=== PATIENT | male | born 1980 ===

== ENCOUNTER 2025-05-19 04:39 | Emergency (ER) | payer BC, SELFPAY ==
[2025-05-19 04:50] VITALS: BP 127/78; PULSE 67; RESP 16; TEMP 36.7; O2SAT 96; BMI 38.7
--- OUTSIDE RECORDS SUMMARY | 2025-05-19 05:33 | XMS_ITS | Clinical Summary ---
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 10/03/2018 DX:Chronic bilateral low robin k pain with right-sided sciatica Lumbar radiculitis 10/03/2018 DX:Lumbar rad iculitis Osteoarthritis of spine with radiculopathy, lumbar region 10/03/2018 DX:Osteoarthritis of spin e with radiculopathy, lumbar region Social History Tobacco Use Types Packs/Day Years Used Date Smoking Tobacco: Never Smokeless Tobacco: Never Alcohol Use Standard Drinks/Week Comments Yes 3 (1 standard drink = 0.6 oz pur e alcohol) Sex and Gender Information Value Date Recorded Sex Assigned at Not on file Legal Sex Male 2:16 AM EST Gender Identity Not on file Sexual Orientation Not on file Obstetrics History Last Filed Vital Signs Vital Sign Reading Time Taken Comments Blood Pressure 118/84 12/19/2021 3:46 PM EDT Pulse 88 12/19/2021 3:46 PM EDT Temperature - - Respiratory Rate - - Oxygen Saturation - - Inhaled Oxygen Concentration - - Weight 105 kg (232 lb) 12/19/2021 3:46 PM EDT Height 177.8 cm (5' 10 ) 12/19/2021 3:46 PM EDT Body Mass Index 33.29 12/19/2021 3:46 PM EDT Plan of Treatment Health Maintenance Due Date Last Done Comments DTaP,Tdap,and Td Vaccines (1 - Tdap) 1999 Hepatitis B Vaccines (1 of 3 - 19+ 3-dose series) 1999 Cholesterol Screening (Lipid Panel) 08/06/2022 HIV Screening 08/06/2022 Hepatitis C Screening 08/06/2022 Social Influencers of Health Screening 08/06/2022 Depression Screening 09/03/2024 COVID-19 Vaccine (1 - 2023-2 5 season) 2025 Influenza Vaccine (#1) 2025 06/17/2020 HIB Vaccines Aged Out No longer eligi ble based on patient's age to complete this topic HPV Vaccines Aged Out No longer eligi ble based on patient's age to complete this topic Hepatitis A Vaccines Aged Out No long er eligible based on patient's age to complete this topic IPV Vaccines Aged Out No longer eligi ble based on patient's age to complete this topic MMR Vaccines Aged Out No longer eligi ble based on patient's age to complete this topic Meningococcal ACWY Vaccine Aged Out N o longer eligible based on patient's age to complete this topic Meningococcal B Vaccine Aged Out No l onger eligible based on patient's age to complete this topic Pneumococcal Vaccine: Pediat rics (0 to 5 Years) and At-Risk Patients (6 to 49 Years) Aged Out No longer eligi ble based on patient's age to complete this topic RSV Immunization Patients Un franki 20 months Aged Out No longer eligible b ased on patient's age to complete this topic Varicella Vaccines Aged Out No longer eligible based on patient's age to complete this topic Care Teams Orthopedics Nurse Relationship Specialty Start Date End Date Gallito Miller MD PCP - General Internal Medicine 06/13/18
--- OUTSIDE RECORDS SUMMARY | 2025-05-19 05:33 | XMS_ITS ---
Author Name [facility] Organization Unknown Care Team Organization Name Specialty Phone Email Start Date End Da laverne [facility] KAYLEE ELY Primary Care 07/11/2022 04/21/20 24
--- NOTE | 2025-05-19 06:09 | ED_ITS ---
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 He notes he was at work around 130 and developed bilateral lumbar back pain and discomfort. He denies b/b incontinence, no saddle anesthesia, no IVDA, no blood thinners. No urinary symptoms. He has no radicular symptoms. He has not taken any OTC medications. MD elicited complaint: back pain and back injury Pertinent past history: prior back pain Onset (ago): hour(s) (130am) Timing: constant Severity: moderate Similar Symptoms Previously: Yes Quality: throbbing Location: lumbar spine Radiation: none Exacerbating factors: movement Relieving factors: immobilization Context: other Associated symptoms: denies other symptoms Work related injury: No Related Data Previous Rx's ?Medication ?Instructions ?Recorded diazepam 5 mg tablet (Valium) 5 mg PO TID PRN muscle s pasm #10 05/19/25 tabs ketorolac 10 mg tablet 10 mg PO TID PRN pain 5 days #15 05/19/25 tabs Allergies Allergy/AdvReac Type Severity Reaction Status Date / Time acetaminophen (From Percocet) AdvReac Dizziness Verified 05/19/25 04:56 oxycodone (From Percocet) AdvReac Dizziness Verified 05/19/25 04:56 Review of Systems Review of Systems: Constitutional : No Weight loss, No Fever, No Chills, ENT/Mouth : No Hearing loss, No Ear Pain, No Nasal Congestion, No Sinus Pain, No Hoarseness, No sore throat, No Rhinorrhea, No Swallowing Difficulty Cardiovascular : No Chest Pain, No SOB Respiratory : No Cough, No Dyspnea Gastrointestinal : No Nausea, No Vomiting, No Diarrhea, No abdominal Pain, No Hematochezia, No Melena Genitourinary : No Dysuria, No Urinary Frequency, No Hematuria, No Urinary Incontinence, Musculoskeletal : positive back pain Skin : No Skin Lesions, No rash Neuro : No Weakness, No Numbness, No Paresthesias, no loss of bowel or bladder incontinence, no saddle anesthesia Yes all other systems are reviewed and are negative [facility] Past Medical History Attestation statement: The following information was validated with the patient. Source: old records reviewed Medical History Bulging lumbar disc Social History Social History (Updated 05/19/25 @ 06:27 by Cara Wang DO) Patient Tobacco Use Status: Never used Tobacco Advance Directives: No Advance Directives Information Provided: Yes Do you have a plan to hurt others: No Plan Physical Exam Vital Signs: Vital Signs: Last Vital Signs Temp 98 F 05/19/25 07:23 Pulse 75 05/19/25 08:15 Resp 18 05/19/25 08:15 BP 128/64 05/19/25 08:15 Pulse Ox 98 05/19/25 08:15 O2 Del Method Room Air 05/19/25 08:15 BMI result Body Mass Index 38.7 Appearance: Alert. Oriented X3. No acute distress. Eyes: Pupils equal, round and reactive to light. ENT: Pharynx normal. Neck: Normal inspection. Neck supple. CVS: Normal heart rate and rhythm. Pulses normal. Respiratory: No respiratory distress. Breath sounds normal. Abdomen: Soft and nontender. Back: lumbar ttp along bilateral paraspinal Skin: Skin warm and dry. Normal skin color. Normal skin turgor. Extremities: No lower extremity edema. No calf ttp Neuro: Oriented X 3. No motor deficit. No sensory deficit. L5 5/5 bilaterally, SILT inner thigh 2+ DTR in patella bilaterally Course Course Course Narrative: still having pain does not like narcotics - will try IM valium. Medications Administered Discontinued Medications Generic Name Dose Route Start Last Admin Trade Name Jose Lq PRN Reason Stop Dose Admin Diazepam 5 mg 05/19/25 05:56 05/19/25 06:16 Diazepam 5 Mg Tablet PO 05/19/25 05:57 5 mg ONCE ONE Administration Diazepam 5 mg 05/19/25 07:10 05/19/25 07:59 Diazepam 10 Mg/2 Ml Cartridge IM 05/19/25 07:11 5 mg STAT STA Administration Ketorolac Tromethamine 30 mg 05/19/25 05:56 05/19/25 06:16 Ketorolac Tromethamine 30 Mg/Ml Vial IM 05/19/25 05:57 30 mg ONCE ONE Administration Medical Decision Making Medical Decision Making MDM Narrative: 44 yo male with PMH of prior back pain and disc bulges now here with c/o low back pain but no radicular symptoms and no cauda equina symptoms at this time will start on pain control. He is NV intact, benign abdomen and overall is not toxic Differential Diagnosis Differential Diagnoses: The differential diagnosis associated with the presentation includes lumbar strain, back spasm Admission/Observation Consideration of admission/observation: Escalation of care including admission/observation considered able to ambulate stable for DC Independent Historian Clinical information obtained from an independent historian. History obtained from or confirmed by: Spouse External Record Review External record reviewed: Outpatient record Prescription Management I considered prescription management with: Pain Medication and Other Discharge Plan Discharge Clinical Impression: Strain of lumbar region Patient Disposition: Home, Self-Care Instructions: Low Back Strain (ED) Additional Instructions: monitor for signs of weakness, loss of control of bowel or bladder, numbness or weakness or any other concerns take all medications with food avoid all over the counter NSAIDs while on toradol - no naproxen, ibuprofen Prescriptions: New ketorolac 10 mg tablet 10 mg PO TID PRN (Reason: pain) 5 Days Qty: 15 0RF Rx Instructions: given IV toradol in department diazepam [Valium] 5 mg tablet 5 mg PO TID PRN (Reason: muscle spasm) Qty: 10 0RF Rx Instructions: partial fill is okay Stand Alone Forms: Work/School Release Print Language: Niuean
[2025-05-19 07:23] VITALS: BP 123/67; PULSE 69; RESP 16; TEMP 36.6; O2SAT 98
[2025-05-19] MEDS: diazePAM 10 MG/2 ML CARTRIDGE 5 MG IM (07:59)
[2025-05-19 08:15] VITALS: BP 128/64; PULSE 75; RESP 18; O2SAT 98
[2025-05-19 09:12] VITALS: BP 102/68; PULSE 63; RESP 16; TEMP 36.6; O2SAT 100
[2025-05-19 09:31] VITALS: BP 102/68; PULSE 63; RESP 16; TEMP 36.6; O2SAT 100
== END 2025-05-19 09:32 | disposition home or self-care (01) ==
PROVIDERS: Emergency Provider Emergency Medicine
DX: S39.012A Strain of muscle, fascia and tendon of lower back, initial encounter (principal); X58.XXXA Exposure to other specified factors, initial encounter; Y93.9 Activity, unspecified; Y92.9 Unspecified place or not applicable; Y99.9 Unspecified external cause status
CPT/HCPCS: 96372; 99284; J1885; J3360